=== PATIENT | female | born 1985 | race Caucasian/White ===

== ENCOUNTER 2017-09-17 00:05 | Inpatient (IN) | payer MEDICAID, OTHER ==
[~2017-09-17] VITALS: Ht 165.1 cm; Wt 94.9 kg
[~2017-09-17 00:05] MED LIST: KEPP10002 PO; LACO100 PO; ZOFR4TAB3 SL
[2017-09-17 00:07] VITALS: BP 116/64; PULSE 65; RESP 16; TEMP 98.2; O2SAT 97
[2017-09-17] MEDS ORDERED: LORazepam 2 MG/ML VIAL IV PUSH ONE (00:45)
[2017-09-17] MEDS ORDERED: levETIRAcetam INJ 100 ML IV ONE (00:45)
[2017-09-17 00:58] LABS: BASOPHIL # 0.1 TH/MM3 (0-0.2); BASOPHIL % 0.5 % (0.0-2.0); EOSINOPHIL # 0.1 TH/MM3 (0-0.4); EOSINOPHIL % 0.2 % (0.0-4.0); HEMATOCRIT 43.6 % (35.0-46.0); HEMOGLOBIN 14.2 GM/DL (11.6-15.3); LYMPH % 19.1 % (9.0-44.0); LYMPHOCYTE # 4.4 TH/MM3 (1.0-4.8); MEAN CELL VOLUME 90.5 FL (80.0-100.0); MEAN CORPUSCULAR HEMOGLOBIN 29.4 PG (27.0-34.0); MEAN CORPUSCULAR HGB CONC 32.5 % (32.0-36.0); MEAN PLATELET VOLUME 8.1 FL (7.0-11.0); MONO % 5.9 % (0.0-8.0); MONOCYTE # 1.4 TH/MM3 (0-0.9); NEUT % 74.3 % (16.0-70.0); PLATELET COUNT 303 TH/MM3 (150-450); RED BLOOD COUNT 4.82 MIL/MM3 (4.00-5.30); RED CELL DISTRIBUTION WIDTH 13.8 % (11.6-17.2); WHITE BLOOD COUNT 22.9 TH/MM3 (4.0-11.0)
[2017-09-17 01:27] LABS: ALBUMIN 3.8 GM/DL (3.4-5.0); ALT (GPT) 19 U/L (10-53); AST (GOT) 10 U/L (15-37); BICARBONATE 12.7 MEQ/L (21.0-32.0); BLOOD UREA NITROGEN 11 MG/DL (7-18); CHLORIDE 105 MEQ/L (98-107); CREATININE 0.99 MG/DL (0.50-1.00); GLOMERULAR FILTRATION RATE 65 ML/MIN (>89); GLUCOSE,RANDOM 111 MG/DL (74-106); SODIUM (NA) 141 MEQ/L (136-145)
--- NOTE | 2017-09-17 01:27 | PD ---
HPI Chief Complaint: Seizure Time Seen by Provider: 00:38 Travel History International Travel<30 days: No Contact w/Intl Traveler<30days: No Traveled to known affect area: No History of Present Illness HPI Is a 31-year-old woman who presents to the emergency department complaining of seizures. Patient is postictal, and history is obtained entirely from the family member of her medical records. She has a history of epilepsy. She has had multiple seizures over the past 24 hours. She is followed by a neurologist in [place], Dr. Stone. About 2 weeks ago she started her Topamax. She continues on Keppra and Vimpat. She has had seizures all her life according to the boyfriend. Last seizure was several months ago. She was seen in [facility] earlier today for seizures, had an unremarkable blood work, and was discharged to follow-up with her neurologist. She had another seizure at home and so came by [facility] to [facility] here. While waiting to be evaluated she had a second seizure in the room. History Past Medical History Narrative Medical Epilepsy LMP: 08/29/17 Social History Alcohol Use: Yes (wine occassional) Tobacco Use: No Allergies-Medications (Allergen,Severity, Reaction): Coded Allergies: No Known Allergies (Verified Adverse Reaction, Unknown, 09/17/17) Reported Meds & Prescriptions Reported Meds & Active Scripts Active Reported Keppra (Levetiracetam) 1,000 Mg Tab 1,500 Mg PO BID Vimpat (Lacosamide) 100 Mg Tab 100 Mg PO BID Review of Systems Except as stated in HPI: all other systems reviewed are Neg Physical Exam Narrative GENERAL: On my initial evaluation patient is actively seizing, followed by postictal state. SKIN: Focused skin assessment warm/dry. HEAD: Atraumatic. Normocephalic. EYES: Pupils equal and round. No scleral icterus. No injection or drainage. ENT: No nasal bleeding or discharge. Mucous membranes pink and moist. NECK: Trachea midline. No JVD. CARDIOVASCULAR: Heart rate rapid, regular. No murmur appreciated. RESPIRATORY: No accessory muscle use. Clear to auscultation. Breath sounds equal bilaterally. GASTROINTESTINAL: Abdomen soft, non-tender, nondistended. Hepatic and splenic margins not palpable. MUSCULOSKELETAL: No obvious deformities. No clubbing. No cyanosis. No edema. NEUROLOGICAL: A decreased responsiveness. Appears to move all extremities without deficits. Data Data Last Documented VS Vital Signs Date Time Temp Pulse Resp B/P (MAP) Pulse Ox O2 Delivery O2 Flow Rate FiO2 09/17/17 00:07 98.2 65 16 116/64 (81) 97 Orders Orders Complete Blood Count With Diff (09/17/17 00:38) Comprehensive Metabolic Panel (09/17/17 00:38) Levetiracetam Inj (Keppra Inj) (09/17/17 00:45) Lorazepam Inj (Ativan Inj) (09/17/17 00:45) Ct Brain W/O Iv Contrast(Rout) (09/17/17 ) Beta Hcg (Quant/Titer) (09/17/17 00:38) Levetiracetam (09/17/17 00:39) Admit Order (Ed Use Only) (09/17/17 ) Labs Laboratory Tests Test 09/17/17 00:45 White Blood Count 22.9 TH/MM3 Red Blood Count 4.82 MIL/MM3 Hemoglobin 14.2 GM/DL Hematocrit 43.6 % Mean Corpuscular Volume 90.5 FL Mean Corpuscular Hemoglobin 29.4 PG Mean Corpuscular Hemoglobin Concent 32.5 % Red Cell Distribution Width 13.8 % Platelet Count 303 TH/MM3 Mean Platelet Volume 8.1 FL Neutrophils (%) (Auto) 74.3 % Lymphocytes (%) (Auto) 19.1 % Monocytes (%) (Auto) 5.9 % Eosinophils (%) (Auto) 0.2 % Basophils (%) (Auto) 0.5 % Neutrophils # (Auto) 17.0 TH/MM3 Lymphocytes # (Auto) 4.4 TH/MM3 Monocytes # (Auto) 1.4 TH/MM3 Eosinophils # (Auto) 0.1 TH/MM3 Basophils # (Auto) 0.1 TH/MM3 CBC Comment DIFF FINAL Differential Comment Blood Urea Nitrogen 11 MG/DL Creatinine 0.99 MG/DL Random Glucose 111 MG/DL Total Protein 7.7 GM/DL Albumin 3.8 GM/DL Calcium Level 8.0 MG/DL Alkaline Phosphatase 105 U/L Aspartate Amino Transf (AST/SGOT) 10 U/L Alanine Aminotransferase (ALT/SGPT) 19 U/L Total Bilirubin 0.3 MG/DL Sodium Level 141 MEQ/L Potassium Level 3.4 MEQ/L Chloride Level 105 MEQ/L Carbon Dioxide Level 12.7 MEQ/L Anion Gap 23 MEQ/L Estimat Glomerular Filtration Rate 65 ML/MIN Human Chorionic Gonadotropin, Quant LESS THAN 1 MIU/ML MDM Medical Decision Making Medical Screen Exam Complete: Yes Emergency Medical Condition: Yes Medical Record Reviewed: Yes Interpretation(s) LABS: CBC remarkable for leukocytosis. CMP with gap acidosis, likely from seizure HCG negative Keppra level pending Head CT negative. Differential Diagnosis Seizure disorder, medication reaction, tumor or bleed, other Narrative Course Medical decision making 31-year-old woman presents emergency department with increase in seizure frequency, 5 seizures over the past 24 hours, typically one seizure every year or so. They are adjusting her Topamax dose and this may be the cause of the symptoms. No definite evidence of infection. At this point will check labs, CT , was given benzodiazepines, will also give an extra dose of Keppra. We will plan on admission for neurology consultation, further evaluation and treatment. Spoke with Dr. Melton, will admit patient for further evaluation. Diagnosis Primary Impression: Seizures Admitting Information Admitting Physician Requests: it Mark Canas MD Sep 17, 2017 01:26
[2017-09-17 01:31] LABS: ALKALINE PHOSPHATASE 105 U/L (45-117); TOTAL BILIRUBIN ADULT 0.3 MG/DL (0.2-1.0); TOTAL PROTEIN 7.7 GM/DL (6.4-8.2)
--- NOTE | 2017-09-17 02:12 | RADRPT ---
EXAM DATE/TIME: 09/17/2017 01:58 [facility] COMPARISON: No previous studies available for comparison. INDICATIONS : Multiple seizures today. RADIATION DOSE: 33.67 CTDIvol (mGy) MEDICAL HISTORY : Seizures. SURGICAL HISTORY : None. ENCOUNTER: Initial ACUITY: 1 day PAIN SCALE: Non-responsive LOCATION: cranial TECHNIQUE: Multiple contiguous axial images were obtained of the head. Using automated exposure control and adj ustment of the mA and/or kV according to patient size, radiation dose was kept as low as reasonably a chievable to obtain optimal diagnostic quality images. DICOM format image data is available electro nically for review and comparison. FINDINGS: CEREBRUM: The ventricles are normal for age. No evidence of midline shift, mass lesion, hemorrhage or acute in farction. No extra-axial fluid collections are seen. POSTERIOR FOSSA: The cerebellum and brainstem are intact. The 4th ventricle is midline. The cerebellopontine angle i s unremarkable. EXTRACRANIAL: The visualized portion of the orbits is intact. SKULL: The calvaria is intact. No evidence of skull fracture. CONCLUSION: Normal examination. Rosalino Pinon MD on September 17, 2017 at 2:09 Board Certified Radiologist. This report was verified electronically.
[2017-09-17] MEDS ORDERED: SODIUM CHLOR 0.9% 1000 ML INJ 1,000 ML IV SCH (02:57)
[2017-09-17] MEDS ORDERED: ACETAMINOPHEN 325 MG TAB PO PRN (03:00)
[2017-09-17] MEDS ORDERED: LORazepam 2 MG/ML VIAL IV PUSH PRN (03:00)
[2017-09-17] MEDS ORDERED: SODIUM CHLORIDE 0.9% FLUSH 10 ML FLUSH IV FLUSH PRN (03:00)
--- NOTE | 2017-09-17 03:06 | HHI.HP ---
[facility] Primary Care Physician No Primary Care Physician Admission Diagnosis Seizure disorder Diagnoses: Travel History International Travel<30 Days: No Contact w/Intl Traveler <30 Da: No Traveled to Known Affected Are: No History of Present Illness 31-year-old female with a past medical history significant for seizure disorder presents to the emergency department for evaluation of breakthrough seizures. The patient is postictal and status post Ativan in the emergency department. Per ED documentation, the patient has a history of epilepsy and has had multiple seizures over the past 24 hours. She is followed by Dr. Stone in [place]. Approximately 2 weeks ago the patient's Topamax was discontinued. She remains compliant with her Keppra and Vimpat. Prior to yesterday, the patient's last seizure was several months ago. The patient was seen in [place] earlier yesterday for her seizures, had unremarkable blood work and was discharged to follow-up with her neurologist. She had a repeat seizure at home and then again in the emergency department. At the time of our interview, the patient is postictal and unable to answer my questions. She opens her eyes to the sound of her name and will track to voice. Review of Systems Unable to obtain secondary to patient's clinical condition Past Family Social History Past Medical History Seizure disorder Past Surgical History Unable to obtain Reported Medications Reported Meds & Active Scripts Active Reported Keppra (Levetiracetam) 1,000 Mg Tab 1,500 Mg PO BID Vimpat (Lacosamide) 100 Mg Tab 100 Mg PO BID Allergies: Coded Allergies: No Known Allergies (Verified Allergy, Unknown, 09/17/17) Family History Unable to obtain Social History Unable to obtain Physical Exam Vital Signs Vital Signs Date Time Temp Pulse Resp B/P (MAP) Pulse Ox O2 Delivery O2 Flow Rate FiO2 09/17/17 00:07 98.2 65 16 116/64 (81) 97 Physical Exam GENERAL: female lying in bed SKIN: No rashes, ecchymoses or lesions. Cool and dry. HEAD: Atraumatic. Normocephalic. No temporal or scalp tenderness. EYES: Pupils equal round and reactive. Extraocular motions intact. No scleral icterus. No injection or drainage. ENT: Nose without bleeding, purulent drainage or septal hematoma. Throat without erythema, tonsillar hypertrophy or exudate. Uvula midline. Airway patent. NECK: Trachea midline. No JVD or lymphadenopathy. Supple, nontender, no meningeal signs. CARDIOVASCULAR: Regular rate and rhythm without murmurs, gallops, or rubs. RESPIRATORY: Clear to auscultation. Breath sounds equal bilaterally. No wheezes , rales, or rhonchi. GASTROINTESTINAL: Abdomen soft, non-tender, nondistended. No hepato-splenomegaly , or palpable masses. No guarding. MUSCULOSKELETAL: Extremities without clubbing, cyanosis, or edema. No joint tenderness, effusion, or edema noted. No calf tenderness. NEUROLOGICAL: Opens eyes to her name. We'll track to voice. Does not follow commands. Unable to answer my questions at this time. Laboratory Laboratory Tests Test 09/17/17 00:45 White Blood Count 22.9 Red Blood Count 4.82 Hemoglobin 14.2 Hematocrit 43.6 Mean Corpuscular Volume 90.5 Mean Corpuscular Hemoglobin 29.4 Mean Corpuscular Hemoglobin Concent 32.5 Red Cell Distribution Width 13.8 Platelet Count 303 Mean Platelet Volume 8.1 Neutrophils (%) (Auto) 74.3 Lymphocytes (%) (Auto) 19.1 Monocytes (%) (Auto) 5.9 Eosinophils (%) (Auto) 0.2 Basophils (%) (Auto) 0.5 Neutrophils # (Auto) 17.0 Lymphocytes # (Auto) 4.4 Monocytes # (Auto) 1.4 Eosinophils # (Auto) 0.1 Basophils # (Auto) 0.1 CBC Comment DIFF FINAL Differential Comment Blood Urea Nitrogen 11 Creatinine 0.99 Random Glucose 111 Total Protein 7.7 Albumin 3.8 Calcium Level 8.0 Alkaline Phosphatase 105 Aspartate Amino Transf (AST/SGOT) 10 Alanine Aminotransferase (ALT/SGPT) 19 Total Bilirubin 0.3 Sodium Level 141 Potassium Level 3.4 Chloride Level 105 Carbon Dioxide Level 12.7 Anion Gap 23 Estimat Glomerular Filtration Rate 65 Human Chorionic Gonadotropin, Quant LESS THAN 1 Result Diagram: 09/17/17 0045 09/17/17 0045 Caprini VTE Risk Assessment Caprini VTE Risk Assessment: No/Low Risk (score <= 1) Caprini Risk Assessment Model Point Value = 1 Point Value = 2 Point Value = 3 Point Value = 5 Age 41-60 Minor surgery BMI > 25 kg/m2 Swollen legs Varicose veins or History of unexplained or recurrent spontaneous Oral contraceptives or hormone replacement Sepsis (< 1 month) Serious lung disease, including pneumonia (< 1 month) Abnormal pulmonary function Acute myocardial infarction Congestive heart failure (< 1 month) History of inflammatory bowel disease Medical patient at bed rest Age 61-74 Arthroscopic surgery Major open surgery (> 45 min) Laparoscopic surgery (> 45 min) Malignancy Confined to bed (> 72 hours) Immobilizing plaster cast Central venous access Age >= 75 History of VTE Family history of VTE Factor V Leiden Prothrombin [id number] Lupus anticoagulant Anticardiolipin antibodies Elevated serum homocysteine Heparin-induced thrombocytopenia Other congenital or acquired thrombophilia Stroke (< 1 month) Elective arthroplasty Hip, pelvis, or leg fracture Acute spinal cord injury (< 1 month) Prophylaxis Regimen Total Risk Factor Score Risk Level Prophylaxis Regimen 0-1 Low Early ambulation 2 Moderate Order ONE of the following: *Sequential Compression Device (SCD) *Heparin 5000 units SQ BID 3-4 Higher Order ONE of the following medications: *Heparin 5000 units SQ TID *Enoxaparin/Lovenox 40 mg SQ daily (WT < 150 kg, CrCl > 30 mL/min) *Enoxaparin/Lovenox 30 mg SQ daily (WT < 150 kg, CrCl > 10-29 mL/min) *Enoxaparin/Lovenox 30 mg SQ BID (WT < 150 kg, CrCl > 30 mL/min) AND/OR *Sequential Compression Device (SCD) 5 or more Highest Order ONE of the following medications: *Heparin 5000 units SQ TID (Preferred with Epidurals) *Enoxaparin/Lovenox 40 mg SQ daily (WT < 150 kg, CrCl > 30 mL/min) *Enoxaparin/Lovenox 30 mg SQ daily (WT < 150 kg, CrCl > 10-29 mL/min) *Enoxaparin/Lovenox 30 mg SQ BID (WT < 150 kg, CrCl > 30 mL/min) AND *Sequential Compression Device (SCD) Assessment and Plan Assessment and Plan Assessment/plan: 1. Breakthrough seizure Patient began having breakthrough seizures approximately 24 hours ago Her Topamax was stopped approximately 2 weeks ago by her neurologist [place] she remains compliant with her Vimpat and Keppra Continue home medications Keppra level pending Patient was loaded with Keppra in the emergency department Neurology consulted, appreciate recommendations Seizure precautions Ativan when necessary FEN Regular diet Electrolytes: replete prn NS at 75 cc/hr Kelley Melton MD Sep 17, 2017 03:06
[2017-09-17 04:27] VITALS: BP 109/58; PULSE 78; RESP 18; TEMP 98; O2SAT 98
[2017-09-17 08:06] VITALS: BP 104/57; PULSE 80; RESP 18; TEMP 98; O2SAT 98
[2017-09-17] MEDS ORDERED: SODIUM CHLORIDE 0.9% FLUSH 10 ML FLUSH IV FLUSH SCH (09:00)
[2017-09-17] MEDS ORDERED: levETIRAcetam 500 MG TAB PO SCH (09:00)
[2017-09-17] MEDS ORDERED: LACOSAMIDE 100 MG TAB PO SCH ×2 (09:00→21:00)
--- NOTE | 2017-09-17 10:02 | MB ---
cc: Sen Chou MD DATE: 09/17/2017 HISTORY OF PRESENT ILLNESS: A 31-year-old right-handed woman who really has been very healthy, but she has had seizures since she had febrile seizures as a baby. She is currently taking Vimpat 100 b.i.d. and Keppra 1500 b.i.d. She sees a neurologist over in the [place] region. She has Medicaid insurance. She has a history of headaches almost every day. She was on Topamax, she is not sure of the dose, b.i.d. until about a week ago, which when it was stopped her headaches have gotten a little bit worse. Nevertheless, she had about 5 seizures yesterday, generalized tonic-clonic and tonic according to her , she has other staring off spells very frequently. She has been driving, and I told she is not to drive or do any other high-risk behaviors which I explained to her, such as taking a bath, swimming alone, climbing heights, using power tools, riding a bicycle or motorcycle, anything if she had a seizure she could be injured. As far as issue, her boyfriend has had a vasectomy, so not wanting any more children. She does have a daily headache also. She is hoping medical marijuana will prevent her seizures and wants to get off seizure medication. I did inform her that she has had seizures her whole life and that is unlikely to stop her seizures and she is going to need continuous seizure medications. Other major seizures were [facility] [place] and around [place]. REVIEW OF SYSTEMS: Denies any hypertension, diabetes, hypercholesterolemia, SD, stent, heart problems, renal, hepatic or pulmonary disease, thyroid disease, lupus, ulcer cancer or stroke. SOCIAL HISTORY: Not a smoker. Occasionally has a drink. Smokes pot. Lives with a boyfriend. FAMILY HISTORY: Negative for cancer, seizure or stroke. PHYSICAL EXAMINATION: NECK: There are no carotid bruits. HEART: Regular rhythm. I do not detect a murmur. NEUROLOGICAL EXAMINATION: The right disc was sharp. Pupils were equal, reactive. Visual wilson are full. Extraocular movements intact without nystagmus. Face is symmetric with normal sensation. Tongue was midline. There is no drift. Normal strength in upper and lower extremities bilaterally. DTRs are 2+, symmetric throughout. Toes downgoing bilaterally. Pinprick is intact throughout as was vibratory sense. There is no ankle clonus. She is not ataxic on [id number]. Speech is fluent; she is not aphasic. LABORATORY DATA: CBC shows a white count of 22, otherwise normal. Her basic metabolic profile was essentially normal. Glucose is 111. LFTs are normal. Albumin normal. HCG normal. CAT scan of the brain was read as negative without contrast. IMPRESSION AND PLAN: Long history of seizure disorder. I would increase her Vimpat to 100 b.i.d. She is not to drive as noted above and I did inform her and will have to notify the registry. In addition, I have asked her to call her primary neurologist today, let him know that we increase the Vimpat and to find out from him so she knows if she has ever had any abnormal EEGs, which she was not sure. She could be discharged neurologically. The elevated white count could be from her seizures, although a UA should be checked by the med team before discharge. MD DHEERAJ Naylor/CHRIS , 09:42 AM , 10:01 AM
[2017-09-17 10:47] LABS: BILIRUBIN, URINE NEG (NEG); BLOOD, URINE NEG (NEG); GLUCOSE,URINE NEG (NEG); KETONE, URINE NEG (NEG); MUCUS URINE FEW /lpf (OCC); NITRITE,URINE NEG (NEG); SQUAMOUS EPITHELIAL CELL URINE 2 /hpf (0-5); URINE COLOR YELLOW (YELLW/STRAW); URINE LEUKOCYTE ESTERASE NEG (NEG)
[2017-09-17] MEDS ORDERED: LACOSAMIDE 100 MG TAB PO ONE (12:00)
[2017-09-17 12:01] VITALS: BP 116/73; PULSE 84; RESP 17; TEMP 98.1; O2SAT 99
[2017-09-17] MEDS ORDERED: LACO100 PO (14:50)
--- NOTE | 2017-09-17 14:50 | HHI.DCPOC ---
Discharge Care Plan Diagnosis: (1) Seizures Goals to Promote Your Health * To prevent worsening of your condition and complications * To maintain your health at the optimal level Directions to Meet Your Goals Take your medications as prescribed Follow your dietary instruction Follow activity as directed Keep your appointments as scheduled Take your immunizations and boosters as scheduled If your symptoms worsen call your PCP, if no PCP go to Urgent Care Center or Emergency Room Smoking is Dangerous to Your Health. Avoid second hand smoke Call the 24-hour hour crisis hotline for domestic abuse at Jamir Nolasco MD Sep 17, 2017 14:50
--- NOTE | 2017-09-17 14:53 | HHI.PR ---
Subjective Remarks Follow-up seizures. Patient states that she feels better. She has no complaints at this time. She wants to go home. Objective Vitals Vital Signs Date Time Temp Pulse Resp B/P (MAP) Pulse Ox O2 Delivery O2 Flow Rate FiO2 09/17/17 12:01 98.1 84 17 116/73 (87) 99 09/17/17 08:06 98.0 80 18 104/57 (73) 98 09/17/17 07:00 Room Air 09/17/17 04:27 98.0 78 18 109/58 (75) 98 09/17/17 00:07 98.2 65 16 116/64 (81) 97 I/O 09/16/17 09/16/17 09/16/17 09/17/17 09/17/17 09/17/17 06:59 14:59 22:59 06:59 14:59 22:59 Intake Total 220 ml Balance 220 ml Intake Oral 120 ml IV Total 100 ml # Voids 1 # Bowel Movements 0 Result Diagram: 09/17/17 0045 09/17/17 0045 Objective Remarks General: No acute distress. Heart: Regular rate and rhythm. No murmur. Lungs: Clear to auscultation bilaterally. No wheezes, rales, or rhonchi. Breathing is nonlabored. Abdomen: Soft, nontender, nondistended. Extremities: No lower extremity edema. Psych: Alert and oriented. Procedures None Urinary Catheter: No Vascular Central Line Catheter: No A/P Assessment and Plan 1. Seizure disorder: Appreciate neurology recommendations. Continue Keppra. Vimpat dose increased. Patient cleared for discharge by neurology. Follow-up with her primary neurologist and her primary care physician. Counseled to avoid driving, bathing, and other activities that could be dangerous with seizure activity. Discharge Planning Discharge home in stable condition. Follow-up with PCP, neurology. Activity as tolerated, no driving. Regular diet. Jamir Nolasco MD Sep 17, 2017 14:53
[2017-09-19 13:52] LABS: ANA SCREEN NEG (NEG)
== END 2017-09-17 15:43 | disposition home or self-care (01) | DRG 101 ==
LOC: NEPC 00:05 → NEDA 02:38 → INTOOBSV 02:38 → OBSVTOIN 03:59 → N06A 04:20
PROVIDERS: ADMIT Family Medicine; ATTEND Family Medicine
DX: G40.909 Epilepsy, unspecified, not intractable, without status epilepticus (principal); F12.90 Cannabis use, unspecified, uncomplicated
CPT/HCPCS: 70450; 80053; 80177; 81001; 82607; 84425; 84702; 85025; 85652; 86038; 86592; 96365; 96374; 96375; 96376; J1885; J1953; J2060; J2405; J7030